=== PATIENT | male | born 1950 | race African-American/Black ===

== ENCOUNTER 2017-05-18 15:42 | Emergency (ER) | payer OTHER ==
[~2017-05-18] VITALS: Ht 172.7 cm; Wt 80.1 kg
[~2017-05-18 15:42] MED LIST: ADULT LOW DOSE81 M1 PO; ALLERGY MEDICIN25 M2 PO; AMLODIPINE BESYL5 MG PO; ASPIR 8181 M1 PO; ASPIRIN E.C.81 M1 PO; ASPIRIN325 MG PO; ASPIRIN81 M2 PO; AZITHROMYCIN250 MG1 PO; BENTYL20 MG PO; BISOPROLOL-HCT1 EAC1 PO; BUSPAR10 M1 PO; BUSPAR10 MG PO; BUSPAR15 MG PO; BUSPIRONE HCL10 MG PO; Buspar PO; CHLORDIAZEPOXI1 EACH PO; CHRONULAC,CEPHUL1 ML PO; CIALIS5 MG PO; CITRATE OF MAG296 ML PO; CLONIDINE HCL0.1 MG PO; COLACE100 MG PO; COUMADIN1 MG PO; COUMADIN7.5 MG PO; Colace PO; Coumadin,Jantoven PO; Cytotec PO; DAILY VALUE1 EACH PO; DILAUDID2 MG PO; DONNATAL1 TABLET PO; ECOTRIN81 M1 PO; ELIQUIS5 MG PO; Ecotrin PO; FLOMAX0.4 M1 PO; FLOMAX0.4 MG PO; FLONASE16 G1 BOTH NARES; FLONASE16 G1 NS; Flomax PO; Flonase BOTH NARES; GABAPENTIN600 MG PO; HYDROCODON-ACE1 EA11 PO; HYDROCODON-ACE1 EA14 PO; HYDROCODON-ACE1 EACH PO; HYDROCODONE PO; KEFLEX500 MG; LEXAPRO10 MG PO; LIBRAX CAPSULE1 EACH PO; LIBRAX, CLI1 CAPSULE PO; LINZESS145 MCG PO; LIPITOR10 MG PO; LIPITOR5 MG PO; LO-DOSE ASPIRIN81 M1 PO; LOVENOX30 MG/0.3 SC; MAG-OXIDE400 MG PO; MIRALAX17 GM PO; MIRALAX255 GM PO; MOVANTIK25 MG PO; MULTIVITAMIN1 EAC2 PO; MYSOLINE50 M1 PO; MYSOLINE50 MG PO; Miralax, Glycolax PO; Mysoline PO; NEURONTIN300 MG PO; NEURONTIN600 MG PO; NORVASC10 MG PO; Neurontin PO; OXYCODONE-APAP1 EACH PO; PERCOCET 10/1 TABLET PO; PHILLIPS'400 MG/5 M PO; PREVACID30 MG PO; PRILOSEC40 MG PO; PRIMIDONE50 MG PO; PROBIOTIC1 EAC1 PO; PROZAC WEEKLY 990 MG PO; PROZAC WEEKLY90 MG PO; PROZAC20 M1 PO; PROZAC20 MG PO; PT/INR 0; Prevacid PO; QUETIAPINE FUM200 MG PO; SENNA8.6 M1 PO; SENNA8.6 MG PO; SEROQUEL XR150 MG PO; SEROQUEL100 MG PO; SEROQUEL12.5 MG PO; TIZANIDINE HCL4 MG PO; TYLENOL WITH C1 EACH PO; ULTRAM50 MG PO; VENTOLIN HFA18 GM IH; VICODIN,LORT1 TABLET PO; XARELTO10 MG PO; XARELTO20 MG PO; Xarelto PO; ZANAFLEX4 M1 PO; ZEBETA5 MG PO; ZIAC 2.5/6.251 TAB PO; ZITHROMAX Z-PA250 MG PO; ZOFRAN4 MG PO; Ziac 2.5/6.25 PO; [UNRECOGNIZED DRUG - OTHER] PO; [UNRECOGNIZED DRUG - OTHER] PO
[2017-05-18 16:50] LABS: ADD MIUA? NO; BILIRUBIN NEGATIVE; BLOOD NEGATIVE; COLOR YELLOW ((YELLOW)); GLUCOSE (STRIP) NEGATIVE; KETONES NEGATIVE; LEUKOCYTES NEGATIVE; NITRITE NEGATIVE; PROTEIN (STRIP) NEGATIVE; SPECIFIC GRAVITY 1.012 (1.000-1.030); UCUL ADDED? NO; UROBILINOGEN 0.2 MG/DL (0.2-1.0)
[2017-05-18 16:54] LABS: HEMATOCRIT 41.3 % (38.0-50.0); MCH 30.2 PG (29.0-34.0); MCHC 33.2 G/DL (30.0-36.0); MEAN PLAT.VOLUME 9.1 uM^3 (9.0-12.4); PLATELET COUNT 269 K/uL (156-360); RBC DIS.WIDTH-SD 40.3 % (39-53); RED BLOOD COUNT 4.54 M/uL (4.00-5.50); WHITE BLOOD COUNT 3.2 K/uL (4.1-10.2)
[2017-05-18 17:05] LABS: CHLORIDE 99 mEq/L (99-109); POTASSIUM 3.8 mEq/L (3.7-5.4); PROTHROMBIN TIME 10.3 (9.2-11.2); SODIUM 137 mEq/L (136-147)
[2017-05-18 17:08] LABS: GLUCOSE 98 mg/dL (70-99)
[2017-05-18 17:09] LABS: ANION GAP 11 MEQ/L (2-14)
[2017-05-18 17:10] LABS: TOTAL BILIRUBIN 0.2 mg/dL (0.0-1.0)
[2017-05-18 17:11] LABS: ALKALINE PHOSPHATASE 49 IU/L (3-129); GFR ESTIMATE (CALCULATED) > 59 mL/min/
[2017-05-18 17:12] LABS: UREA NITROGEN (BUN) 10 mg/dL (9-23)
[2017-05-18 17:15] LABS: LIPASE 58 U/L (1.0-51.0)
[2017-05-18] MEDS ORDERED: ZOFRAN4 MG PO (19:22)
[2017-05-18] MEDS ORDERED: PERCOCET 5/31 TABLET PO (19:22)
[2017-05-18] MEDS ORDERED: BENTYL10 MG PO (19:22)
[2017-05-18 20:05] VITALS: BP 107/68
== END 2017-05-18 20:08 | disposition home or self-care (01) ==
LOC: EME 15:42
PROVIDERS: Physician Assistant
DX: R10.9 Unspecified abdominal pain (principal); R11.0 Nausea; I10 Essential (primary) hypertension; E78.5 Hyperlipidemia, unspecified; Z86.718 Personal history of other venous thrombosis and embolism; Z86.711 Personal history of pulmonary embolism; Z79.01 Long term (current) use of anticoagulants; Z79.82 Long term (current) use of aspirin; Z87.891 Personal history of nicotine dependence
CPT/HCPCS: 74177; 80053; 81003; 83690; 85027; 85610; 85730; 99281; 99284; J7040

== ENCOUNTER → 2017-06-26 | Outpatient (CLI) | payer OTHER ==
[~2017-06-26] VITALS: Ht 172.7 cm; Wt 80.3 kg
[~2017-06-26] MED LIST changes: +BENTYL10 MG PO; +PERCOCET 5/31 TABLET PO; +PROTONIX40 MG PO; +ZOLOFT100 MG PO
== END | disposition home or self-care (01) ==
LOC: AMB 13:18
PROC: 0DC58ZZ Extirpation of Matter from Esophagus, Via Natural or Artificial Opening Endoscopic (ICD-10-PCS; principal; 2017-06-26)
DX: B37.81 Candidal esophagitis (principal); R73.01 Impaired fasting glucose; K59.09 Other constipation; K58.9 Irritable bowel syndrome, unspecified; Z80.0 Family history of malignant neoplasm of digestive organs; Z79.01 Long term (current) use of anticoagulants; F41.9 Anxiety disorder, unspecified; K21.9 Gastro-esophageal reflux disease without esophagitis; I10 Essential (primary) hypertension; E78.00 Pure hypercholesterolemia, unspecified; G25.0 Essential tremor; G89.29 Other chronic pain; M41.9 Scoliosis, unspecified; N40.1 Benign prostatic hyperplasia with lower urinary tract symptoms; R33.8 Other retention of urine; Z86.711 Personal history of pulmonary embolism; Z86.718 Personal history of other venous thrombosis and embolism; Z87.891 Personal history of nicotine dependence; Z98.1 Arthrodesis status
CPT/HCPCS: 88108